=== PATIENT | male | born 1980 | race Caucasian/White ===

== ENCOUNTER 2017-07-06 09:41 | Observation (INO) | payer OTHER ==
--- NOTE | 2017-07-06 09:46 | CPEKG ---
Heart Rate: 65 RR Interval: 923 P-R Interval: 188 QRSD Interval: 106 QT Interval: 464 QTC Interval: 483 P Radford: 70 QRS Radford: 56 T Wave Radford: 25 EKG Severity - BORDERLINE ECG - EKG Impression: SINUS RHYTHM EKG Impression: BORDERLINE PROLONGED QT INTERVAL Electronically Signed By: Jelani Branch 06-Jul-2017 09:57:28
[2017-07-06] MEDS ORDERED: NS 1,000 ML IV ONE (09:50)
[2017-07-06] MEDS ORDERED: METOCLOPRAMIDE 10 MG/2 ML VIAL IVP ONE (09:50)
[2017-07-06] MEDS ORDERED: METOCLOPRAMIDE 10 MG/2 ML VIAL ONE (09:51)
--- NOTE | 2017-07-06 09:53 | EDPHY ---
H & P Time Seen by Provider: 07/06/17 09:44 HPI/ROS: CHIEF COMPLAINT: Passed out, hit head HISTORY OF PRESENT ILLNESS: This 37-year-old man was in the office getting a physical prior to adopting a child. History is from the patient as well as Marycruz at the office and Dr. Manriquez. Patient normally eats breakfast but did not have anything to eat or drink today. He finished his appointment and had his blood drawn, and then was standing at the desk checking out when he started feeling like he was going "to black out. " Staff saw him fall forward and hit is head on the desk and then fall backwards and hit the back of his head on the floor. He got stiff for a couple of minutes and was incontinent and then woke up and was able to climb onto the gurney from [facility]. Currently complains of an occipital headache and nausea. No neck or back pain and no weakness or numbness in extremities. Witness Jaziel Ortiz recounts same story, stiffening up only for 1 minute or so after falling, then moving all extremities and waking up without confusion. REVIEW OF SYSTEMS: Eye: no change in vision ENT: no sore throat Cardiac: No chest pain Pulmonary: Not short of breath Abdomen: No abdominal pain or diarrhea Musculoskeletal: no back pain or neck pain Skin: no rash Neuro: Mild occipital headache Constitutional: no fever : no urinary symptoms A comprehensive 10 point review of systems is otherwise negative aside from elements mentioned in the history of present illness. PAST MEDICAL HISTORY: Negative Social history: No breakfast today, no alcohol @943: 128/85, 58, 97% RA, 36.4 General Appearance: Alert and conversant, cooperative. Eyes: No scleral icterus. EOMI. ENT, Mouth: Normal mucous membranes. No tongue laceration or abrasion. No lacerations. Respiratory: Normal respiratory effort, breath sounds equal, lungs are clear to auscultation. Cardiovascular: Regular rate and rhythm. No murmur. Gastrointestinal: Abdomen is soft and non tender. Neurological: Alert and oriented x3. Knows location, age, year, day of week. Normally conversant. Face symmetric, normal movement and sensation in all extremities. Pupils react bilaterally. Skin: Mildly diaphoretic. Musculoskeletal: No cervical thoracic or lumbar spine tenderness. No extremity tenderness or deformity. Psychiatric: Not agitated. Emergency Department course/MDM: Patient did have incontinence but no tongue laceration or abrasion, no postictal state. Much more likely to be syncope, I think grand mal seizure is possible, but less likely. Patient declined pain medication initially. Plan for i-STAT, IV fluids, Reglan 10 mg IV, head CT and cervical spine CT. 955: Discussed with patient's , he has had syncope before when he does not eat breakfast. 1015: CT reviewed with Dr. Kruger, has traumatic subarachnoid and parafalcine subdural. Discussed with the patient and reviewed the images with his on the computer system. Plan for transfer to [facility] to ICU/Stepdown for admission and neurosurgical consultation, discussed with Antelmo. Does not appear to have other system injuries. 1019: Also has occipital skull fracture extending into the foramen magnum, but negative cervical spine CT per [place]lick. 50mcg fentanyl IV for pain. 1111: per scanning coordinator Nereida Whyte needs to go to ED first, discussed with Meseret. 1128: lab on paper, not in computer; WBC 7.07, Hct 46.8, plt 214k. needs ALS transport for monitoring head injury. Smoking Status: Never smoked Constitutional: Initial Vital Signs O2 Sat (%) 96 07/06/17 09:42 O2 Delivery Mode Nasal Cannula O2 (L/minute) 2 Allergies/Adverse Reactions: No Known Allergies Allergy (Unverified 03/01/15 11:37) Home Medications: Medication Instructions Recorded NK [No Known Home Meds] 07/06/17 Medical Decision Making - Diagnostics EKG Interpretation: 12-lead EKG interpreted by me; official reading is in trace master. My interpretation is sinus rhythm, QT 464. Imaging Results: Imaging Impressions Head CT 07/06/17 09:50 Impression: 1. Subarachnoid hemorrhage over the frontal lobes. 2. Small subdural hematoma along the left side of the falx superiorly. 3. Basilar skull fracture involving the occipital bone at the midline extending to the right occipital condyle. If symptoms worsen, additional imaging may be necessary. Findings discussed with Jelani Branch M.D. at 10:19 hour, 07/06/2017. Differential Diagnosis: Differential diagnosis considered for syncope including but not limited to vasovagal syncope, arrhythmia, dehydration, and blood loss. Consult/Admit Bed Type: [place] 1024am accepts stepdown - Data Points Laboratory Results: 07/06/17 07/06/17 09:45 09:43 POC Hgb 16.7 gm/dL gm/dL (13.7-17.5) POC Hct 49 % % (40-51) PT 13.2 SEC SEC (12.0-15.0) INR 1.03 (0.83-1.16) APTT 25.1 SEC SEC (23.0-38.0) POC Sodium 141 mEq/L mEq/L (134-144) POC Potassium 3.3 mEq/L mEq/L (3.3-5.0) POC Chloride 106 mEq/L mEq/L (97-110) POC BUN 13 mg/dL mg/dL (7-23) POC Creatinine 1.0 mg/dL mg/dL (0.7-1.3) POC Glucose 115 mg/dL H mg/dL (70-100) Medications Given: Discontinued Medications Fentanyl (Sublimaze) 50 mcg IVP EDNOW ONE Stop: 07/06/17 10:24 Last Admin: 07/06/17 10:28 Dose: 50 mcg Sodium Chloride (Ns) 1,000 mls @ 0 mls/hr IV EDNOW ONE; Wide Open PRN Reason: Protocol Stop: 07/06/17 09:51 Last Admin: 07/06/17 09:52 Dose: 1,000 mls Metoclopramide HCl (Reglan Injection) 10 mg IVP EDNOW ONE Stop: 07/06/17 09:51 Last Admin: 07/06/17 09:52 Dose: 10 mg Point of Care Test Results: 07/06/17 09:43 POC Sodium 141 POC Potassium 3.3 POC Chloride 106 POC BUN 13 POC Creatinine 1.0 POC Glucose 115 H Departure - Departure Disposition: [facility] Acute Clinical Impression: Fracture of occipital bone of skull with loss of consciousness, Subdural hematoma Syncope Qualifiers: Syncope type: vasovagal syncope Qualified Code(s): R55 - Syncope and collapse Traumatic subarachnoid hemorrhage Qualifiers: Encounter type: initial encounter Loss of consciousness presence/duration: with LOC of 30 min or less Qualified Code(s): S06.6X1A - Traumatic subarachnoid hemorrhage with loss of consciousness of 30 minutes or less, initial encounter Condition: Serious
[2017-07-06] MEDS ORDERED: fentaNYL 100 MCG/2 ML INJ IVP ONE (10:23)
[2017-07-06 10:29] LABS: APTT 25.1 SEC (23.0-38.0); INR 1.03 (0.83-1.16); PROTIME(PATIENT) 13.2 SEC (12.0-15.0)
--- NOTE | 2017-07-06 12:13 | EDPHY ---
H & P Time Seen by Provider: 07/06/17 09:44 HPI/ROS: HPI Head trauma, transferred from [facility]. 37-year-old male by ambulance. This patient was initially seen by Dr. Jelani Branch emergency department physician at the [facility]. Please see his note for further details. The patient was getting a fasting blood sugar checked through his primary care physician. He had a syncopal event at the primary care physician's office. He fell to the ground struck his head. He sustained a occipital skull fracture and subdural hematoma. His full workup and evaluation was performed at the [facility] by Dr. Branch. He is admitted to the trauma service and neurosurgical service from the [facility]. However, secondary to institutional protocol the patient needed to be seen in the emergency department here prior to going to his bed in the step-down unit. The patient complains of a mild dull headache. Otherwise he has no complaints. ROS: Constitutional: No fever, no chills. No weakness. Eyes: No discharge. No changes in vision. Respiratory: No cough. No shortness of breath. Cardiac: No chest pain, no palpitations. Gastrointestinal: No abdominal pain, no vomiting, no diarrhea. Musculoskeletal: No back pain. No neck pain. No extremity pain. Skin: No lacerations or abrasions. Neurological: As above. No focal weakness or altered sensation. Past medical history: Past medical history is as above otherwise negative. Social history: No alcohol. Nonsmoker. Here by himself. Physical Exam: General Appearance: Alert, no distress. This patient is responding to questions appropriately and in full sentences. This patient appears well- hydrated and well-nourished. Head: Normocephalic atraumatic except for a occipital hematoma. He has a gauze dressing wrapped around his head. Face: Facial bones are stable on palpation. Eyes: Pupils equal and round and reactive to light, no pallor or injection. No lid erythema or edema. Mild photophobia. ENT, Mouth: Mucous membranes moist. Dentition is intact. No malocclusion of the jaw. No tongue lacerations or abrasions. Pharynx is clear. The bilateral nasal canals are clear. No septal hematoma. Respiratory: There are no retractions, lungs are clear to auscultation with good air movement bilaterally. Chest wall is stable to AP and lateral palpation. Cardiovascular: Regular rate and rhythm. No murmur. Gastrointestinal: Abdomen is soft and nontender, no masses, bowel sounds normal. Neurological: Motor sensory function is intact. Cranial nerves are normal. Skin: Warm and dry, no rashes. No lacerations, abrasions or contusions. Musculoskeletal: Neck is supple and nontender. The trachea is midline. No midline cervical tenderness on palpation. No tenderness on palpation of the long bones in the bilateral upper and bilateral lower extremities. Psychiatric: No agitation. No depression. Database: EKG: Imaging: Please see results of CT head without contrast which was obtained at the [facility]. Procedures: Emergency department course: I evaluated this patient in room [address] Chapincito Banks of the trauma service was paged. Dr. Chapincito Banks will see this patient on his arrival to the step-down unit. Maria T Rodriges was in the emergency department with Dr. Chapincito Banks prior to the patient's arrival and had reviewed the CT scans obtained at the [facility] with Dr. Banks. The patient has received fentanyl and Reglan. No antiepileptic has been given. The patient was then transferred to the step-down unit in stable condition. Differential Diagnosis: The differential diagnosis on this patient includes but is not limited to subdural hematoma, skull fracture. This represents a partial list of diagnoses considered. These considerations are based on history, physical exam, past history, reassessment and diagnostic testing. Smoking Status: Never smoked Constitutional: Initial Vital Signs O2 Sat (%) 96 07/06/17 09:42 O2 Delivery Mode Nasal Cannula O2 (L/minute) 2 Allergies/Adverse Reactions: No Known Allergies Allergy (Unverified 03/01/15 11:37) Home Medications: Medication Instructions Recorded NK [No Known Home Meds] 07/06/17 Medical Decision Making - Diagnostics Imaging Results: Imaging Impressions Head CT 07/06/17 09:50 Impression: 1. Subarachnoid hemorrhage over the frontal lobes. 2. Small subdural hematoma along the left side of the falx superiorly. 3. Basilar skull fracture involving the occipital bone at the midline extending to the right occipital condyle. If symptoms worsen, additional imaging may be necessary. Findings discussed with Jelani Branch M.D. at 10:19 hour, 07/06/2017. - Data Points Laboratory Results: 07/06/17 07/06/17 09:45 09:43 POC Hgb 16.7 gm/dL gm/dL (13.7-17.5) POC Hct 49 % % (40-51) PT 13.2 SEC SEC (12.0-15.0) INR 1.03 (0.83-1.16) APTT 25.1 SEC SEC (23.0-38.0) POC Sodium 141 mEq/L mEq/L (134-144) POC Potassium 3.3 mEq/L mEq/L (3.3-5.0) POC Chloride 106 mEq/L mEq/L (97-110) POC BUN 13 mg/dL mg/dL (7-23) POC Creatinine 1.0 mg/dL mg/dL (0.7-1.3) POC Glucose 115 mg/dL H mg/dL (70-100) Medications Given: Discontinued Medications Fentanyl (Sublimaze) 50 mcg IVP EDNOW ONE Stop: 07/06/17 10:24 Last Admin: 07/06/17 10:28 Dose: 50 mcg Sodium Chloride (Ns) 1,000 mls @ 0 mls/hr IV EDNOW ONE; Wide Open PRN Reason: Protocol Stop: 07/06/17 09:51 Last Admin: 07/06/17 09:52 Dose: 1,000 mls Metoclopramide HCl (Reglan Injection) 10 mg IVP EDNOW ONE Stop: 07/06/17 09:51 Last Admin: 07/06/17 09:52 Dose: 10 mg Point of Care Test Results: 07/06/17 09:43 POC Sodium 141 POC Potassium 3.3 POC Chloride 106 POC BUN 13 POC Creatinine 1.0 POC Glucose 115 H Departure - Departure Disposition: [facility] Inpatient Acute Clinical Impression: Fracture of occipital bone of skull with loss of consciousness, Subdural hematoma Syncope Qualifiers: Syncope type: vasovagal syncope Qualified Code(s): R55 - Syncope and collapse Traumatic subarachnoid hemorrhage Qualifiers: Encounter type: initial encounter Loss of consciousness presence/duration: with LOC of 30 min or less Qualified Code(s): S06.6X1A - Traumatic subarachnoid hemorrhage with loss of consciousness of 30 minutes or less, initial encounter Condition: Serious
[2017-07-06] MEDS ORDERED: ACETAMINOPHEN 325 MG TAB PO PRN (12:14)
[2017-07-06] MEDS ORDERED: HYDROCODONE/APAP 5/325 TAB PO PRN (12:14)
[2017-07-06] MEDS ORDERED: ONDANSETRON DISINTEGRATING 4 MG TAB PO PRN (12:14)
[2017-07-06] MEDS ORDERED: ONDANSETRON 4 MG/2 ML VIAL IVP PRN (12:14)
[2017-07-06] MEDS: NS W/ 20 KCl/L 1,000 ML IV SCH ×2 (13:10→21:36)
--- NOTE | 2017-07-06 13:15 | PDGENHP ---
History and Physical - Chief Complaint headache - History of Present Illness Aly was at his physician's office this morning and presented to the lab for fasting blood tests after his visit. He had a syncopal episode and fell forward striking his head on a counter and then fell backwards hitting his head on the ground. He was wheeled by gurney to the [facility] where he was seen by Dr. Branch and a CT was performed which showed an occipital fracture with associated SAH/SDH. He was transferred by [facility] to [facility] for admission to the trauma service. He reports amnesia following the event and remembers waking up on a gurney. He reports MCINTOSH/nausea but denies visual disturbances, weakness, paresthesias, chest pain, abd pain, neck or back pain. History Information - Allergies/Home Medication List Allergies/Adverse Reactions: No Known Allergies Allergy (Verified 07/06/17 13:17) Home Medications: Multivitamins [Multivitamin (*)] 1 each PO DAILY 07/06/17 [Last Taken 07/05/17] Naproxen Sodium [Aleve 220 MG (*)] 220 mg PO DAILY PRN 07/06/17 [Last Taken Unknown] I have personally reviewed and updated: medical history, social history, surgical history - Past Medical History migraines Additional medical history: obesity with BMI >30 - Surgical History Reports: no pertinent surgical hx - Social History Smoking Status: Never smoked Alcohol Use: Rarely Drug Use: None Additional social history: with 4 children/he was having blood tests for an upcoming adoption and was planning on travelling to [facility] in one week Review of Systems Review of Systems: Cardiac: Reports: syncope Gastrointestinal: Reports: nausea Neurological: Reports: headache Physical Exam Physical Exam: Temp Pulse Resp BP Pulse Ox 36.3 C 72 16 129/78 H 98 07/06/17 11:20 07/06/17 11:20 07/06/17 11:20 07/06/17 11:20 07/06/17 11:20 O2 (L/minute) 2 Constitutional: uncomfortable Eyes: PERRL, anicteric sclera, EOMI Ears, Nose, Mouth, Throat: other (TMs clear bilaterally) Cardiovascular: regular rate and rhythym, no murmur, rub, or gallop Peripheral Pulses: 3+: dorsalis-pedis (R), dorsalis-pedis (L), 4+: carotid (R), carotid (L), femoral (R), femoral (L) Respiratory: no respiratory distress, clear to auscultation Gastrointestinal: soft, non-tender abdomen Genitourinary: no bladder fullness Skin: warm, normal color Musculoskeletal: no muscle tenderness, normal joint ROM, abnormal gait (gait testing not yet attempted) Neurologic: AAOx3, sensation intact bilaterally, CN II-XII Intact Psychiatric: interacting appropriately, not anxious Lymph, Heme, Immunologic: no cervical LAD, no supraclavicular LAD Lab Data & Imaging Review POC Hgb 16.7 gm/dL (13.7-17.5) 07/06/17 09:43 POC Hct 49 % (40-51) 07/06/17 09:43 PT 13.2 SEC (12.0-15.0) 07/06/17 09:45 INR 1.03 (0.83-1.16) 07/06/17 09:45 APTT 25.1 SEC (23.0-38.0) 07/06/17 09:45 POC Sodium 141 mEq/L (134-144) 07/06/17 09:43 POC Potassium 3.3 mEq/L (3.3-5.0) 07/06/17 09:43 POC Chloride 106 mEq/L (97-110) 07/06/17 09:43 POC BUN 13 mg/dL (7-23) 07/06/17 09:43 POC Creatinine 1.0 mg/dL (0.7-1.3) 07/06/17 09:43 POC Glucose 115 mg/dL (70-100) H 07/06/17 09:43 Interpretation: reviewed with Dr. Rodriges/bilateral frontal SAH, small SDH in the falx, occiptal fracture/no C spine fracture Assessment & Plan Assessment: Fracture of occipital bone of skull with loss of consciousness (Acute) Subdural hematoma (Acute) Syncope (Acute) Traumatic subarachnoid hemorrhage (Acute) Plan: Aly will be admitted to the Trauma Service for observation, PT/OT/ST consults , formal neurosurgery consult comfort measures/IV fluids until nausea resolves repeat head CT in AM discussed with Dr. Rodrigez and Dr. Antelmo Banks MD, FACS
[2017-07-06] MEDS: IBUPROFEN 600 MG TAB PO SCH ×2 (15:29→21:36)
--- NOTE | 2017-07-06 16:42 | GHP ---
[f rep st] HISTORY AND PHYSICAL DATE OF ADMISSION: 07/06/2017 The patient was seen and evaluated at approximately 3:20 p.m. in the step-down unit at [facility]. HPI: The patient is a 37-year-old, otherwise healthy man, who was attending a routine medical workup for part of his adoption paperwork this morning. He had been fasting and had a bunch of lab work dr smith, and at the time of his check out he became somewhat lightheaded and then had a syncopal episode. He apparently slumped forward, hitting the front of his head on a desk, and then fell backwards hit ting the back of his head on the floor. If he had any loss of consciousness, it was brief, and he aw messi and was neurologically intact. He presented to the urgent care, and CT of the head and cervical spine was done. This revealed a nondisplaced linear skull fracture in the occipital bone extending d own to the foramen magnum. He also has some scattered traumatic subarachnoid hemorrhage by both fron janet lobes without significant mass effect or shift. He may also have a very small, thin falcine subd ural on the left side of the falx, with also no midline shift or mass effect. He was transferred to [facility] for admission and observation. He currently has no neurologic complaints. He has a mild headache. Denies any chest pain, shortness of breath, abdominal pain, fevers, or oth er symptoms. REVIEW OF SYSTEMS: A 10-point review of systems is negative other than described above in HPI. PAST MEDICAL HISTORY: None. PAST SURGICAL HISTORY: None. ALLERGIES: None. MEDICATIONS: None. FAMILY HISTORY: Negative for stroke, heart disease, diabetes, other neurologic problems. 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 He has currently 3 children and 1 adopted child, and they are in the process of adopting another child. He denies any alcohol, tobacco, or oth er drug use. PHYSICAL EXAM: VITAL SIGNS: He is afebrile with normal stable vital signs. GENERAL APPEARANCE: He is awake, alert, and oriented x3. HEENT: The pupils are equal, round, and reactive to light. Extr aocular movements are intact. Face is symmetric. Tongue is midline. Palate is symmetric. NEUROLOG IC: He has full 5 out of 5 strength of the deltoid, biceps, triceps, wrist flexion, extension, and g rip bilaterally. In the lower extremities, he has full 5 out 5 strength at the hip flexors/extensors , knee flexors/extensors, and plantar and dorsiflexion bilaterally. Sensation is grossly normal, and deep tendon reflexes are normal. IMAGING REVIEW: See HPI for the CT results. He does not have any fractures in the cervical spine, o r any signs of instability. LABORATORY REVIEW: The sodium was 141, potassium 3.3, BUN 13, creatinine 1.0. PT is 13.2, INR 1.0, PTT is 25.1. Hemoglobin 16.7, hematocrit 49. ASSESSMENT AND PLAN: The patient is a 37-year-old man, who suffered a fall from standing with a sync opal episode earlier today. He has a small nondisplaced occipital skull fracture, some small traumat ic subarachnoid hemorrhage, and a falcine subdural. He is completely neurologically intact with real ly no complaints. He will be admitted for observation overnight tonight, with a repeat head CT in morning. If this is stabilizing, he would be fine for discharge home. I do not think he needs a c ervical collar at this time, as he does not appear to have pain with any range of motion of his neck, and the CT was negative. I discussed with him the signs and symptoms of the post concussive syndrom e, which he very well may experience once he leaves, which could include headaches, nausea, fatigue, tinnitus, and mild confusion, which may last even a couple of months. I recommended nonsteroidal ant i-inflammatories for any of these symptoms. We will follow along while he is here in the hospital, a nd please call immediately if any new neurologic symptoms should develop. /[id number]/MODL
--- NOTE | 2017-07-06 18:18 | SOAPPROG ---
Downtime Inpatient MD Late Entry SOAP Note: Aly is resting comfortably and no longer vomiting. His headache is improved. Additional history from patient and his : Aly was admitted to a on license of [facility] at age 18 for severe headache. 10 years later he was evaluated at [place] for similar symptoms and he recalls his physicians discussing the possiblity of a cerebral aneurysm. Ultimately he did not require an intervention and he has had no formal follow up since then. I have requested an contrast CT following his non-contrast FU trauma CT as a CTA.
[2017-07-07] MEDS ORDERED: IOPAMIDOL (ISOVUE 370) 100 ML BTL IV ONE (04:27)
[2017-07-07] MEDS: IBUPROFEN 600 MG TAB PO SCH ×2 (06:30→14:28)
--- NOTE | 2017-07-07 06:51 | NEUSURGPN ---
Assessment/Plan: 47y/o male s/p syncopal episode with occipital skull fracture, tSAH and tentorial SDH -HCT with some slight evolving changes -CTA negative for aneurysm -Neuro stable. Will continue to monitor closely this morning. If no change in neuro exam, can d/c later this afternoon -Optimize pain management -Please notify NS with any change in neuro/motor exam -Discussed with Dr. Cruz Subjective: mild headache, tolerable with Tylenol Objective: NAD A&Ox3 MAEx4 5/5 and equal in BUE and BLE. CN II-XII grossly intact. EOMI - Physician Discussed Patient with : Nancy Neurosurgery Physical Exam - Vitals, I&O, Labs I and O 07/06/17 07/07/17 07/08/17 05:59 05:59 05:59 Intake Total 3521 Balance 3521 Weight 113.1 kg Intake: Oral (ml) 720 IV Infused (ml) 2801 NS W/ 20 KCl/L 1,000 ml @ 1801 125 mls/hr IV CONT [facility] Rx#:[id number] Other: Number of Voids Toilet 2 Vital Signs Temp Pulse Resp BP Pulse Ox 37.1 C 77 10 L 136/78 H 92 07/06/17 20:00 07/07/17 05:23 07/07/17 05:23 07/07/17 05:23 07/07/17 05:23 ICD10 Worksheet Patient Problems: Problems Problem Status Onset Fracture of occipital bone of skull with loss of consciousness Acute Subdural hematoma Acute Syncope Acute Traumatic subarachnoid hemorrhage Acute
--- NOTE | 2017-07-07 09:01 | TRAUMAPN ---
Assessment/Plan: 37-year-old male status post fall with small frontal subarachnoid and subdural hemorrhages and basilar skull fracture Tertiary exam Neuro: Nonfocal, repeat head CT scan this morning looks about the same to me, formal read pending. Pain does appear controlled although he is dizzy when getting up. Plan per Neurosurgery Pulm: Stable on room air CV: Hemodynamically stable Abdomen: Soft nondistended nontender good bowel sounds Renal: Voiding Heme: Stable Id: Afebrile Ortho: Basilar skull fracture, plan per Neurosurgery. Dispo: PT OT, cognitive eval. Discharge planning per Neurosurgery as he has isolated head Subjective: Complains of headache and dizziness when getting up Objective: Vital Signs Temp Pulse Resp BP Pulse Ox 36.6 C 70 12 114/61 93 07/07/17 07:44 07/07/17 07:44 07/07/17 07:44 07/07/17 07:44 07/07/17 07:44 07/06/17 07/07/17 07/08/17 05:59 05:59 05:59 Intake Total 3521 800 Balance 3521 800 PT 13.2 SEC (12.0-15.0) 07/06/17 09:45 INR 1.03 (0.83-1.16) 07/06/17 09:45
--- NOTE | 2017-07-07 11:21 | ASMTCASEMG ---
Living Arrangements What is your living Answers: With Spouse arrangement? Who do you live with? Case Management Evaluation Functional: ADL / IADL Answers: Other Notes: Pt with skull Performance Deficits Due fracture, occipital, to: Discharge Plan Comments Coordination Status Comments Notes: Patients needs still TBD. Plan had been that patient was to go to [facility] to adopt child next week. Still unknown what patients needs will be on discharge. Date Signed: 07/07/2017 11:20 AM Electronically Signed By:BRIANNA Gerardo
[2017-07-07 11:53] VITALS: BP 124/80; PULSE 82; RESP 14; TEMP 98.2; O2SAT 94
[2017-07-07] MEDS ORDERED: levETIRAcetam 500 MG TAB PO SCH (14:00)
== END 2017-07-07 14:49 | disposition home or self-care (01) ==
LOC: CED 09:41 → CEDHOLD 10:24 → INTOOBSV 10:24 → F2N 12:10
PROVIDERS: ADMIT Neurological Surgery; ATTEND Neurological Surgery
DX: S06.6X1A Traumatic subarachnoid hemorrhage with loss of consciousness of 30 minutes or less, initial encounter (principal); S06.5X1A Traumatic subdural hemorrhage with loss of consciousness of 30 minutes or less, initial encounter; S02.11GA Other fracture of occiput, right side, initial encounter for closed fracture; R55 Syncope and collapse; R40.2412 Glasgow coma scale score 13-15, at arrival to emergency department; W19.XXXA Unspecified fall, initial encounter; Y92.531 Health care provider office as the place of occurrence of the external cause
CPT/HCPCS: 70450; 70496; 72125; 92523; 93005; 97161; 97166; G0378; 82947-QW; 85610-PO; 85730-PO; 96374; J2405; J2765; J3010; Q9967

== ENCOUNTER 2017-07-10 10:53 | Inpatient (IN) | payer OTHER ==
[2017-07-10] MEDS ORDERED: ONDANSETRON 4 MG/2 ML VIAL IVP ONE (11:34)
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
[2017-07-10] MEDS ORDERED: ONDANSETRON 4 MG/2 ML VIAL ONE (11:35)
[2017-07-10 12:38] LABS: PROTIME(PATIENT) 13.1 SEC (12.0-15.0)
[2017-07-10 13:09] LABS: PLATELET COUNT 212 10^3/uL (150-400)
[2017-07-10] MEDS ORDERED: DIAZEPAM 10 MG/2 ML SYR IVP ONE (13:09)
[2017-07-10] MEDS ORDERED: ALBUTEROL 3 ML DEYVIAL IH ONE (13:14)
[2017-07-10] MEDS ORDERED: ACETAMINOPHEN 500 MG TAB PO ONE (14:31)
[2017-07-10] MEDS ORDERED: NS 1,000 ML IV ONE (15:39)
[2017-07-10] MEDS ORDERED: oxyCODONE IR 5 MG TAB PO PRN (15:55)
[2017-07-10] MEDS ORDERED: HYDROmorphONE/DILAUDID 1 MG/ML INJ IVP PRN (15:55)
[2017-07-10] MEDS ORDERED: PROMETHAZINE HCL 25 MG/ML INJ IVP PRN (15:55)
[2017-07-10] MEDS ORDERED: NS 1,000 ML IV SCH (16:00)
[2017-07-10] MEDS: MECLIZINE HCL 25 MG TAB PO PRN (16:40)
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
--- NOTE | 2017-07-10 17:23 | GCON ---
[f rep st] CONSULTATION NEUROSURGICAL EMERGENCY ROOM CONSULT DATE OF CONSULTATION: 07/10/2017 CHIEF COMPLAINT: The patient is a 37-year-old man with a recent traumatic brain injury and skull fra cture. HISTORY OF PRESENT ILLNESS: The patient was reportedly fasting for a physical exam/checkup at his [facility] physician's office last Sunday, when he passed out in the office and hit his head. He was taken to [facility] where a head CT demonstrated a skull fracture and contusions wit h some subarachnoid blood. He was admitted overnight and sent home the next morning, and since then has had nausea, vomiting and headaches. He presents now to the emergency room for evaluation. PAST MEDICAL AND SURGICAL HISTORY: Tenderness and skull fracture with traumatic brain injury last we ek, as noted above. 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 There is no alcohol or tobacco use. FAMILY HISTORY: Noncontributory. MEDICATIONS ON ADMISSION: Keppra and an antinausea medication, but he cannot remember the name of it . DRUG ALLERGIES: None known. REVIEW OF SYSTEMS: Positive for headache and dizziness. The rest of the 10-point review of systems is negative. This was reviewed. NEUROLOGIC EXAMINATION: The patient is awake, alert, and oriented x4. The patient's speech is fluen t and appropriate. His extraocular movements are intact. His face is symmetric. His tongue is midl ine. He has full strength throughout. Reflexes and sensation within normal limits. IMAGING STUDIES: A CT and MRI of the brain were reviewed by me personally, demonstrated the prior sk ull fracture with some bifrontal contusions at the base of the skull, and some resolving subarachnoid blood. There is no significant hydrocephalus or mass effect. IMPRESSION/RECOMMENDATIONS: This is a 37-year-old male with a recent closed head injury/traumatic br ain injury with some contusions who went home the day after the injury and has had headaches, nausea and vomiting and is probably a little dehydrated. He should be admitted and rehydrated, and observed at least overnight, and remain on his Keppra for now, for about 2 weeks total. /[id number]/MODL
[2017-07-10] MEDS: levETIRAcetam 250 MG TAB PO SCH (19:37)
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
[2017-07-10] MEDS: ACETAMINOPHEN 325 MG TAB PO PRN (22:48)
[2017-07-11 04:48] LABS: PLATELET COUNT 208 10^3/uL (150-400)
--- NOTE | 2017-07-11 07:17 | NEUSURGPN ---
Assessment/Plan: Assessment: 37 yo male that is readmitted to IM with terrible vertigo and dizziness/moderate in severity headaches Plan: -MRI of the brain shows skull fractures as well as frontal contusions/ICB -vertigo: being treated by IM -PT/OT/ST -diet as tolerated -continue with current pain management per IM -warning signs given -call with any questions or concerns -pt seen/discussed with Dr Dos Santos as well Subjective: Awake and alert. Pt with continued vertigo symptoms. No neck/chest/abd or gu complaints. No f/c/n/v/d. Objective: AAO x 3, PERRLA/EOMI no droop CN 2-12 grossly intact +lt touch GANGA x 4 ambulating Neuro Check Frequency: per routine Urinary Catheter in Place: No - Physician Discussed Patient with : Tori Patient Seen by : Tori Neurosurgery Physical Exam - Vitals, I&O, Labs I and O 07/10/17 07/11/17 07/12/17 05:59 05:59 05:59 Intake Total 750 Balance 750 Weight 107.501 kg Intake: Oral (ml) 750 Other: Number of Voids 1 Toilet 2 Vital Signs Temp Pulse Resp BP Pulse Ox 36.9 C 47 L 16 121/81 H 95 07/11/17 04:00 07/11/17 04:00 07/11/17 04:00 07/11/17 04:00 07/11/17 04:00 Laboratory Results 07/11/17 04:39 07/11/17 04:39 ICD10 Worksheet Patient Problems: Problems Problem Status Onset Fracture of occipital bone of skull with loss of consciousness Acute Subdural hematoma Acute Syncope Acute Traumatic subarachnoid hemorrhage Acute
[2017-07-11] MEDS: MECLIZINE HCL 25 MG TAB PO PRN (08:21)
[2017-07-11] MEDS: levETIRAcetam 250 MG TAB PO SCH ×2 (08:21→22:17)
[2017-07-11] MEDS: ONDANSETRON 4 MG/2 ML VIAL IVP PRN ×2 (08:24→22:37)
--- NOTE | 2017-07-11 08:43 | HOSPPROG ---
Hospitalist Progress Note Assessment/Plan: Aly is a 37-year-old male who was having fasting work done on 07/06/2020. He became lightheaded and had marciano syncopal event. This was secondary to vasovagal. He came to the ER was diagnosed at that time with an occipital skull fracture and subarachnoid hemorrhage and subdural hematoma. He was discharged the next day. He returned to the emergency room because he is having ongoing symptoms of vertigo with constant spinning. He also has some hearing loss and tinnitus in his left area. Today is my 1st encounter with the patient. Chart reviewed. * vertigo/no nystagmus -had received meclizine yesterday and was feeling better initially -feeling poorly this morning -had been vomiting at home -will try Valium to see if this helps his symptoms *Insomnia -unable to sleep last night -trial of melatonin -hesitant to use Ambien due to recent fall * occipital skull fracture and subarachnoid hemorrhage and subdural hematoma -was seen by neuro surgical services -continue Keppra for 2 weeks * recent vasovagal syncopal episode -at this time does not need any further evaluation * mild anion gap acidosis * DVT prophylaxis -contraindicated due to the above *Plan: he will require another midnight stay due to ongoing vertigo, difficulty with eating, ambulation. Hopefully, dc in the a.m. Subjective: Aly is frustrated about not sleeping, is very dizzy and not hungry. Objective: Vital Signs Temp Pulse Resp BP Pulse Ox 36.7 C 60 16 130/89 H 92 07/11/17 07:22 07/11/17 07:22 07/11/17 07:22 07/11/17 07:22 07/11/17 07:22 Laboratory Results 07/11/17 04:39 07/11/17 04:39 07/10/17 07/11/17 07/12/17 05:59 05:59 05:59 Intake Total 750 Balance 750 PT 13.1 SEC (12.0-15.0) 07/10/17 11:00 INR 1.00 (0.83-1.16) 07/10/17 11:00 - Physical Exam Constitutional: appears nourished, not in pain Eyes: PERRL, EOMI Ears, Nose, Mouth, Throat: hearing normal Cardiovascular: regular rate and rhythym Respiratory: no respiratory distress Gastrointestinal: normoactive bowel sounds Skin: warm Neurologic: AAOx3 Psychiatric: interacting appropriately ICD10 Worksheet Patient Problems: Problems Problem Status Onset Fracture of occipital bone of skull with loss of consciousness Acute Subdural hematoma Acute Syncope Acute Traumatic subarachnoid hemorrhage Acute
[2017-07-11] MEDS ORDERED: DIAZEPAM 5 MG TAB PO PRN (09:11)
[2017-07-11] MEDS: ACETAMINOPHEN 325 MG TAB PO PRN (13:07)
--- NOTE | 2017-07-11 14:04 | PDMN ---
Medical Necessity Medical necessity: Patient meets INPT criteria per REAL ESTATE SALES AGENT note and MCG M-152 Dizziness (ongoing vertigo, difficulty w/eating and ambulation s/p occipital skull fracture w/SAH and SDH; anticipated LOS > 2 midnights; ongoing IV hydration and antiemetics.)
--- NOTE | 2017-07-11 14:04 | PDMN ---
Medical Necessity Medical necessity: Patient meets INPT criteria per NATIONAL ACCOUNT MANAGER note and MCG M-152 Dizziness (ongoing vertigo, difficulty w/eating and ambulation s/p occipital skull fracture w/SAH and SDH; anticipated LOS > 2 midnights; ongoing IV hydration and antiemetics.)
--- NOTE | 2017-07-11 14:04 | PDMN ---
Medical Necessity Medical necessity: Patient meets INPT criteria per LUNCHROOM ATTENDANT note and MCG M-152 Dizziness (ongoing vertigo, difficulty w/eating and ambulation s/p occipital skull fracture w/SAH and SDH; anticipated LOS > 2 midnights; ongoing IV hydration and antiemetics.)
--- NOTE | 2017-07-11 16:55 | ASMTCMCOM ---
CM Note CM Note Notes: Pt had a syncopal event on 07/06 and came to the ED. He was diagnosed with a skull fx, subdural hematoma and SAH. He was discharged the next day. He came back to the ED yesterday with vertigo, vomiting and tinnitus. Anticipate d/c tomorrow with no CM needs if medically cleared. Date Signed: 07/11/2017 04:54 PM Electronically Signed By:BRIANNA Elizalde
[2017-07-11] MEDS: DIAZEPAM 5 MG TAB PO PRN (18:11)
[2017-07-11] MEDS ORDERED: MELATONIN 3 MG TAB PO SCH (21:00)
[2017-07-12] MEDS: DIAZEPAM 5 MG TAB PO PRN (00:30)
--- NOTE | 2017-07-12 08:07 | NEUSURGPN ---
Assessment/Plan: Assessment: 37 yo male that is readmitted to IM with terrible vertigo and dizziness/moderate in severity headaches Plan: -MRI of the brain shows skull fractures as well as frontal contusions/ICB -vertigo: being treated by IM -PT/OT/ST -continue with current pain management per IM -worsening/warning signs given -ok to discharge home from neurosurgery standpoint, will have him follow up in office in 3-4 weeks-no repeat CT necessary unless symptomatic -call with neurosurgery any questions or concerns -discussed with Dr Dos Santos as well Subjective: Subjective: Awake and alert. Patient feeling better this am. Objective: AAO x 3, PERRLA/EOMI no droop CN 2-12 grossly intact +lt touch GANGA x 4 Neuro Check Frequency: per routine Urinary Catheter in Place: No - Physician Discussed Patient with : [facility] Physical Exam - Vitals, I&O, Labs I and O 07/11/17 07/12/17 07/13/17 05:59 05:59 05:59 Intake Total 1200 Balance 1200 Intake: Oral (ml) 1200 Other: Number of Voids Toilet 2 Vital Signs Temp Pulse Resp BP Pulse Ox 36.6 C 54 L 14 133/90 H 97 07/12/17 08:01 07/12/17 08:01 07/12/17 08:01 07/12/17 08:01 07/12/17 08:01 ICD10 Worksheet Patient Problems: Problems Problem Status Onset Headache Acute Subdural hematoma Acute Traumatic subarachnoid hemorrhage Acute Vertigo Acute Fracture of occipital bone of skull with loss of consciousness Acute Syncope Acute
[2017-07-12] MEDS: levETIRAcetam 250 MG TAB PO SCH (08:09)
[2017-07-12] MEDS ORDERED: DIAZEPAM 2 MG TAB PO PRN (08:37)
[2017-07-12] MEDS ORDERED: MAGNESIUM HYDROXIDE 30 ML UDCUP PO PRN (08:41)
[2017-07-12] MEDS ORDERED: LACTULOSE 20 GM/30 ML UDCUP PO PRN (08:41)
[2017-07-12] MEDS ORDERED: BISACODYL 10 MG SUPP PR PRN (08:41)
--- NOTE | 2017-07-12 08:41 | HOSPPROG ---
Hospitalist Progress Note Assessment/Plan: Aly is a 37-year-old male who was having fasting work done on 07/06/2020. He became lightheaded and had marciano syncopal event. This was secondary to vasovagal. He came to the ER was diagnosed at that time with an occipital skull fracture and subarachnoid hemorrhage and subdural hematoma. He was discharged the next day. He returned to the emergency room because he is having ongoing symptoms of vertigo with constant spinning. He also has some hearing loss and tinnitus in his left area. * vertigo/no nystagmus -Valium has helped -had a huge bout of emesis last night/will see how he does today *concussion -needs a low stimulus environment *Insomnia -resolved * occipital skull fracture and subarachnoid hemorrhage and subdural hematoma -was seen by neuro surgical services -continue Keppra for 2 weeks * recent vasovagal syncopal episode -at this time does not need any further evaluation * mild anion gap acidosis *constipation -add bowel protocol * DVT prophylaxis -contraindicated due to the above *Plan: script for Valium sent so can pick it up/ Will evaluate Aly later after lunch to see if he can ambulate, eat and return home safely. Had emesis last night and was having difficulty w po intake. Subjective: Aly said headaches are well managed w tylenol. Wanting to rest this morning. Objective: Vital Signs Temp Pulse Resp BP Pulse Ox 36.6 C 54 L 14 133/90 H 97 07/12/17 08:01 07/12/17 08:01 07/12/17 08:01 07/12/17 08:01 07/12/17 08:01 07/11/17 07/12/17 07/13/17 05:59 05:59 05:59 Intake Total 1200 Balance 1200 PT 13.1 SEC (12.0-15.0) 07/10/17 11:00 INR 1.00 (0.83-1.16) 07/10/17 11:00 - Physical Exam Constitutional: no apparent distress, appears nourished, not in pain Eyes: PERRL Ears, Nose, Mouth, Throat: hearing normal Cardiovascular: regular rate and rhythym Respiratory: no respiratory distress Skin: warm Neurologic: AAOx3 Psychiatric: interacting appropriately ICD10 Worksheet Patient Problems: Problems Problem Status Onset Headache Acute Subdural hematoma Acute Traumatic subarachnoid hemorrhage Acute Vertigo Acute Fracture of occipital bone of skull with loss of consciousness Acute Syncope Acute
[2017-07-12] MEDS ORDERED: SENNOSIDES/DOCUSATE SODIUM TAB PO SCH (09:00)
[2017-07-12] MEDS ORDERED: POLYETHYLENE GLYCOL 3350 17 GM PKT PO SCH (09:00)
[2017-07-12 12:12] VITALS: BP 110/70; PULSE 61; RESP 16; TEMP 98.8; O2SAT 95
--- NOTE | 2017-07-12 14:02 | GDS ---
[f rep st] DISCHARGE SUMMARY DISCHARGE DIAGNOSES: 1. Vertigo due to recent subarachnoid hemorrhage and subdural hematoma with ongoing cerebral edema. 2. Concussion. 3. Insomnia. 4. Recent occipital skull fracture with subarachnoid hemorrhage and subdural hematoma. 5. Recent vasovagal syncopal episode. 6. Mild anion gap acidosis. 7. Constipation. HISTORY OF PRESENT ILLNESS: Briefly, the patient is a 37-year-old male who was having fasting work done on July 06. He became lightheaded and had a marciano syncopal event. This was secondary to being vasovagal. He came to the ER and was diagnosed at that time with an occipital skull fracture and subarachnoid hemorrhage and a subdural hematoma and then was discharged the next day. He returned to the emergency room because he was having ongoing symptoms of vertigo with constant spinning. He also had some hearing loss and tinnitus in the left ear. In addition, he was having multiple bouts of emesis and had difficulty taking in oral intake. HOSPITAL COURSE: 1. Vertigo due to recent subarachnoid hemorrhage and subdural hematoma with ongoing cerebral edema. His symptoms markedly improved with the use of Valium and meclizine. He had a bout of emesis last night, but today he is able to tolerate eating well. In addition, physical therapy worked with him closely, when he would get up to the left side, he did not get as dizzy. 2. Concussion. I reviewed with the patient and his that he hit his head hard enough to cause this, recommending that he have a low stimulus environment. 3. Insomnia, resolved. 4. Occipital skull fracture, subarachnoid hemorrhage and subdural hematoma. He is to follow up with neurosurgical services in 3-4 weeks. He will be on Keppra for 2 weeks. 5. Recent vasovagal syncopal episode. No further evaluation. 6. Mild anion gap acidosis due to dehydration. 7. Constipation, bowel protocol added. CONDITION AT DISCHARGE: Stable. VITAL SIGNS: Blood pressure is 110/70, heart rate is 61, respiratory rate is 16 , O2 sats on room air 95%, temperature is 37.1 Celsius. MEDICATIONS AT DISCHARGE: Please see the EMR. DISCHARGE INSTRUCTIONS: 1. To take the Valium for vertigo and dizziness. Recommend that he not drink or drive ever while on this medication. 2. He can also get meclizine [id number]. 3. Continue Keppra as ordered by Neurosurgery. 4. To get up on the left side. This has worked better for his symptoms. 5. Important that he keeps a low stimulation environment. 6. Follow up with the neurosurgery team. 7. If he continues to have vertigo, he can see a physical therapist to get the Moody maneuver to see if this helps resolve, but I recommended that he see the neurosurgeon prior to this being done. Greater than 30 minutes discharging and coordinating care. /[id number]/MODL MTDD
--- NOTE | 2017-07-12 16:20 | ASDISCHSUM ---
Discharge Information Plan Status:Home with No Needs Medically Cleared to Leave: Discharge Date:07/12/2017 02:06 PM CM D/C Disposition:Home, Routine, Self-Care ADT D/C Disposition:Home, Routine, Self-Care Projected Discharge Date:07/12/2017 02:06 PM Transportation at D/C: Discharge Delay Reason: Follow-Up Date:07/12/2017 02:06 PM Discharge Slot: Final Diagnosis: Placement Information Patient Contact Information Contact Name:TIA Relationship: Address:[address] City:[facility] Phone: [facility]/Zip Code:[place] [address] Email: Financial Information Financial Class:HMO and PPO Plans Primary Plan Desc:[employer] Primary Plan Number:[id number] Secondary Plan Desc: Secondary Plan Number: Assessment Information BC CM Progress Note CM Note CM Note Notes: Pt had a syncopal event on 07/06 and came to the ED. He was diagnosed with a skull fx, subdural hematoma and SAH. He was discharged the next day. He came back to the ED yesterday with vertigo, vomiting and tinnitus. Anticipate d/c tomorrow with no CM needs if medically cleared. Date Signed: 07/11/2017 04:54 PM Electronically Signed By:BRIANNA Elizalde Intervention Information
--- NOTE | 2017-07-12 16:20 | ASDISCHSUM ---
Discharge Information Plan Status:Home with No Needs Medically Cleared to Leave: Discharge Date:07/12/2017 02:06 PM CM D/C Disposition:Home, Routine, Self-Care ADT D/C Disposition:Home, Routine, Self-Care Projected Discharge Date:07/12/2017 02:06 PM Transportation at D/C: Discharge Delay Reason: Follow-Up Date:07/12/2017 02:06 PM Discharge Slot: Final Diagnosis: Placement Information Patient Contact Information Contact Name:TIA Relationship: Address:[address] City:[facility] Phone: [facility]/Zip Code:[place] [address] Email: Financial Information Financial Class:HMO and PPO Plans Primary Plan Desc:[employer] Primary Plan Number:[id number] Secondary Plan Desc: Secondary Plan Number: Assessment Information BC CM Progress Note CM Note CM Note Notes: Pt had a syncopal event on 07/06 and came to the ED. He was diagnosed with a skull fx, subdural hematoma and SAH. He was discharged the next day. He came back to the ED yesterday with vertigo, vomiting and tinnitus. Anticipate d/c tomorrow with no CM needs if medically cleared. Date Signed: 07/11/2017 04:54 PM Electronically Signed By:BRIANNA Elizalde Intervention Information
--- NOTE | 2017-07-12 16:20 | ASDISCHSUM ---
Discharge Information Plan Status:Home with No Needs Medically Cleared to Leave: Discharge Date:07/12/2017 02:06 PM CM D/C Disposition:Home, Routine, Self-Care ADT D/C Disposition:Home, Routine, Self-Care Projected Discharge Date:07/12/2017 02:06 PM Transportation at D/C: Discharge Delay Reason: Follow-Up Date:07/12/2017 02:06 PM Discharge Slot: Final Diagnosis: Placement Information Patient Contact Information Contact Name:TIA Relationship: Address:[address] City:[facility] Phone: [facility]/Zip Code:[place] [address] Email: Financial Information Financial Class:HMO and PPO Plans Primary Plan Desc:[employer] Primary Plan Number:[id number] Secondary Plan Desc: Secondary Plan Number: Assessment Information BC CM Progress Note CM Note CM Note Notes: Pt had a syncopal event on 07/06 and came to the ED. He was diagnosed with a skull fx, subdural hematoma and SAH. He was discharged the next day. He came back to the ED yesterday with vertigo, vomiting and tinnitus. Anticipate d/c tomorrow with no CM needs if medically cleared. Date Signed: 07/11/2017 04:54 PM Electronically Signed By:BRIANNA Elizalde Intervention Information
== END 2017-07-12 14:06 | disposition home or self-care (01) | DRG 85 ==
LOC: F3N 16:57 → OBSVTOIN 07-11 13:03
PROVIDERS: ADMIT Internal Medicine; ATTEND Internal Medicine
DX: S06.1X0A Traumatic cerebral edema without loss of consciousness, initial encounter (principal); E87.2 Acidosis; S06.5X1A Traumatic subdural hemorrhage with loss of consciousness of 30 minutes or less, initial encounter; S06.6X1A Traumatic subarachnoid hemorrhage with loss of consciousness of 30 minutes or less, initial encounter; S02.11GA Other fracture of occiput, right side, initial encounter for closed fracture; G47.00 Insomnia, unspecified; W19.XXXA Unspecified fall, initial encounter; K59.00 Constipation, unspecified; E86.0 Dehydration; Y92.531 Health care provider office as the place of occurrence of the external cause
CPT/HCPCS: 92523-GN; 96374; 97161-GP; 97165-GO; G0378; J2405; J2550

== ENCOUNTER → 2017-08-26 | Outpatient (CLI) | payer OTHER | LOC: FIMAGING 14:27 | PROVIDERS: ATTEND Neurological Surgery | DX: M51.86 Other intervertebral disc disorders, lumbar region (principal) ==